=== PATIENT | female | born 2005 | race Caucasian/White ===

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

== ENCOUNTER 2024-08-28 18:22 | Outpatient (REF) | payer MEDICAID, SELFPAY ==
[2024-08-28 17:59] LABS: Source Nasal/Nares
[2024-08-28 18:42] LABS: COVID-19 PCR Negative (Negative)
== END 2024-08-28 18:23 | disposition home or self-care (01) ==
LOC: LBN 18:22
PROVIDERS: Visit Provider Physician Assistant Medical
DX: J06.9 Acute upper respiratory infection, unspecified (principal)
CPT/HCPCS: 87635; 87070

== ENCOUNTER 2024-10-01 22:00 | Outpatient (REF) | payer MEDICAID, SELFPAY | END 2024-10-01 22:01 | disposition home or self-care (01) | LOC: LBN 22:00 | PROVIDERS: Visit Provider Physician Assistant | DX: J02.9 Acute pharyngitis, unspecified (principal) | CPT/HCPCS: 87070 ==

== ENCOUNTER 2024-10-02 14:58 | Outpatient (CLI) | payer MEDICAID, SELFPAY ==
--- NOTE | 2024-10-02 12:30 | DI.US_ITS ---
Exam(s) US ABDOMEN EXAM: US ABDOMEN CLINICAL HISTORY: upper abdominal discomfort, RUQ and LUQ pain, R10.11, R10.12 TECHNIQUE: Ultrasound abdomen performed using standard protocol. COMPARISON: No exams were available for comparison FINDINGS: LIVER: Normal size. Slightly increased liver echogenicity, consistent with mild hepatic steatosis.. No focal liver lesions are seen. GALLBLADDER: No evidence of cholelithiasis. No evidence of wall thickening. No pericholecystic fluid identified. NICOLE'S SIGN: Negative. BILIARY SYSTEM: No intrahepatic or extrahepatic biliary ductal dilation. KIDNEYS: Kidneys are symmetric in size. No evidence of renal calculi. No evidence of hydronephrosis. No renal mass or cyst identified. PANCREAS: Normal where visualized. SPLEEN: Not enlarged. ABDOMINAL AORTA AND IVC: Visualized portions normal caliber. ASCITES: None seen. IMPRESSION: Mild hepatic steatosis. No evidence gallbladder abnormality or biliary dilatation. DATA REPOSITORY:
== END 2024-10-02 15:18 ==
LOC: DI 14:58
PROVIDERS: Visit Provider Physician Assistant
DX: R10.11 Right upper quadrant pain (principal); R10.12 Left upper quadrant pain
CPT/HCPCS: 76700

== ENCOUNTER 2024-10-15 16:09 | Emergency (ER) | payer MEDICAID, SELFPAY ==
[2024-10-15 16:15] VITALS: BP 115/77; PULSE 79; RESP 16; TEMP 36.6; O2SAT 98
--- NOTE | 2024-10-15 16:30 | DI.CT_ITS ---
Exam(s) CT ABDOMEN PELVIS W EXAM: CT ABDOMEN PELVIS W CLINICAL HISTORY: Abd pain, RUQ/RLQ.. TECHNIQUE: Imaging Protocol: Axial computed tomography images with coronal and sagittal reformatted images were created and reviewed CONTRAST MATERIAL: Intravenous: Omnipaque-350 75cc Oral: None COMPARISON: No exams were available for comparison FINDINGS: VISUALIZED LUNG BASES: Visualized lung bases are clear and there are no pleural effusions.. No peric ardial effusion. ABDOMEN: There is no ascites. LIVER: There are no focal hepatic lesions evident. No dilated intrahepatic ducts. GALLBLADDER/BILIARY: Subtle density in the gallbladder neck region may represent sludge or calculus a t this level. The gallbladder is not distended nor edematous and there is no pericholecystic fluid. CBD is not dilated. PANCREAS: No evidence of pancreatic mass nor dilatation of the pancreatic duct. SPLEEN: Spleen is not enlarged. No obvious intrasplenic lesions. Splenic and portal veins are paten t. ADRENALS: There are no significant adrenal masses. KIDNEYS:No cysts evident. No solid renal masses. No calculi nor hydronephrosis.. ABDOMINAL AORTA: Abdominal aorta is not enlarged. LYMPH NODES:There is no retroperitoneal nor paraaortic adenopathy. ABDOMINAL WALL: No evidence of significant anterior abdominal wall nor inguinal hernia. GI: There is no evidence of bowel obstruction, free air, nor abscess. PELVIS: GI: The appendix diameter is slightly prominent measuring 7 mm. There is no obvious periappendiceal streaking. No calcified appendicolith seen.No evidence of sigmoid diverticulitis. LYMPH NODES: There is no intrapelvic nor inguinal adenopathy. REPRODUCTIVE: Uterus size is normal. There is a 2 cm cyst in the left adnexa probably ovarian. No f ree fluid. There is a 1.8 cm follicular cyst seen in the right ovary. No free fluid. URINARY BLADDER: No calculi nor obvious masses evident OSSEOUS: No fractures and no significant osseous lesions. IMPRESSION: 1. The appendix is slightly prominent, exhibiting diameter 7 mm. There does not appear to be periapp endiceal streaking. No evidence of calcified appendicolith. No free air. No fluid collection in th is region. 2. Bilateral small ovarian cysts measuring up to 2 cm. No free fluid in the adnexal regions. 3. Subtle density in the gallbladder neck which may be a subtle gallstone. Recommend follow-up gallb ladder ultrasound. The gallbladder is not distended nor edematous. CBD is not dilated. 4. No evidence of bowel obstruction, free air, nor abscess Findings called by myself to ER physician 10/15/2024 at 6:10 p.m. RADIATION DOSE DELIVERED: 522.68mGy.cm Total DLP DATA REPOSITORY: All CT scans at this facility are submitted to the National Radiology Data Registry (NRDR) Dose Index Registry (DIR) with the [employer] (A[employer]). RADIATION OPTIMIZATION: All CT scans at this facility use at least one of these dose optimization te chniques: automated exposure control; mA and/or kV adjustment per patient size (includes targeted exa ms where dose is matched to clinical indication); or iterative reconstruction.
[2024-10-15 16:37] VITALS: BP 116/78; PULSE 76; RESP 16; TEMP 36.6; O2SAT 100
--- NOTE | 2024-10-15 16:38 | DI.RAD_ITS ---
Exam(s) XR CHEST 2V PA LATERAL EXAM: XR CHEST 2V PA LATERAL CLINICAL HISTORY: R. side pain, eval PNA. TECHNIQUE: 2D digital imaging was performed. COMPARISON: CT CT ABDOMEN PELVIS W from 10/15/2024 FINDINGS: 2 views: Heart size is normal. The mediastinum is not widened. Left lung is clear. There appear to be mildly increased markings in the right lower lobe seen on the frontal view; less evident on the lateral view. There are no pleural effusions. IMPRESSION: Possible right lower lobe infiltrate. No pleural effusions. DATA REPOSITORY: RADIATION DOSE DELIVERED:
--- NOTE | 2024-10-15 16:47 | ED.GENADUL_ITS ---
Discharge Plan Disposition Patient Disposition: Home Condition: Stable Discharge Details Clinical Impression: Right lower lobe pneumonia, Dysmenorrhea, GERD (gastroesophageal reflux disease), Anxiety with depression, Chronic nausea, Abdominal pain, Ovarian cyst Primary Care Provider: Unknown,Unknown ED Provider: Shayy Degroot Home Meds and New Rx's Prescriptions: New amoxicillin 500 mg capsule 1,000 mg PO TID 5 Days Qty: 30 0RF azithromycin 250 mg tablet 250 mg PO DAILY 4 Days Qty: 4 0RF Rx Instructions: start on day 2 of therapy (10/16/2024) dicyclomine 20 mg tablet 20 mg PO TID 7 Days Qty: 21 0RF Discharge Instructions Instructions: Community-Acquired Pneumonia, Adult (DC), Abdominal Pain, Adult ED Additional Instructions: You were seen in the emergency department today for evaluation of abdominal and side pain. You are found to have a small pneumonia in the area of your pain, for which you have been started on 2 antibiotics. You will take these at home, as prescribed, until they are gone, even if you start to feel better. You also had some worsening of your chronic abdominal pain, and had a CT scan and laboratory studies that were reassuring. You did have some mild anemia that is unchanged from your baseline. Unfortunately, we are sometimes unable to determine the exact cause of symptoms in the emergency department, and you should keep your appointment that you have scheduled for tomorrow to discuss this visit and any symptoms that change, worsen, persist. I did prescribe you a medication called Bentyl which can sometimes be helpful in irritable bowel syndrome type pain. Please let your provider know that you are trialing this medication, and thank you for allowing us to be part of your care. Stand Alone Forms: Work Release HPI General Mode of arrival: ambulatory . Date/Time Provider Initiated Documentation: 10/15/24 16:11 . Limitations to Documentation: no limitations . Information obtained by: patient and old records reviewed . HPI Narrative: HPI: This is a 19-year-old female patient with a past medical history significant for abdominal pain, diarrhea, for the last 5 years without diagnostic clarity, presenting for evaluation of a change in her abdominal pain. She reports that she noticed that her usual abdominal pain, which is still present across her bilateral lower abdomen, started to develop into a right upper quadrant and right flank pain. She noticed this private branch exchange repairer a week ago, did have an ultrasound done of her gallbladder which was reported to her as normal. She states that she has had nausea, occasional vomiting, and has had diarrhea. No hematemesis or hematochezia, denies urinary changes such as dysuria or hematuria, has not noted any vaginal discharge or new vaginal bleeding that is of concern to her. She has been using Tylenol as needed for symptoms, last dose yesterday. She reports that she has not been able to identify any specific propagating or palliating factors. Endorses ongoing nausea. No fevers. States that she did have a recent cold 1 or 2 weeks ago, has had a cough. Exam: Gen: Awake and alert, in no apparent distress HEENT: Non-icteric sclera Neck: Supple Lungs: No apparent respiratory distress, normal respiratory effort. Lung sounds clear and equal bilaterally CV: Appears well perfused heart with regular rate and rhythm, strong distal pulses Abdomen: Non-distended, soft, tender to palpation in the right upper quadrant and right lower quadrant without rigidity, rebound, or guarding. MSK: Moves 4 extremities without apparent limitation in ROM Skin: Visualized skin without rashes, cyanosis. Neuro: Normal Gait, no obvious focal deficits or facial asymmetry. Speaks in full, clear sentences. Psych: Appropriate for situation. MDM: This is a 19-year-old female patient presenting for evaluation of abdominal pain and flank pain. My differential includes but is not limited to PUD/gastritis, pancreatitis, cholecystitis, hepatitis, certainly considered pneumonia, which could cause her right flank/side pain. Considered appendicitis, diverticulitis. Gastroenteritis was considered, the patient is without risk factors or physical exam evidence concerning for aortic pathology, SBO, or mesenteric ischemia. She had a negative test making ectopic unlikely, no vaginal symptoms to suggest PID/TOA. No urinary symptoms to suggest nephrolithiasis, UTI/pyelonephritis. Reassuringly, the patient is hemodynamically appropriate and tolerating p.o., and this is an acute on chronic change of symptoms that have been present for quite some time. She has a benign abdominal examination, and after shared decision-making conversation we will proceed with laboratory studies to include CBC, CMP, lipase, urinalysis and U . I will also obtain a CT abdomen pelvis with contrast to better characterize any abnormalities. I will obtain a chest x-ray to evaluate for pneumonia. I will provide her with a dose of Toradol and Zofran for symptomatic management. ED Course: I reviewed the patient's laboratory studies, which show a mild anemia that is unchanged from priors, no leukocytosis or thrombocytopenia. Chemistry panel without significant electrolyte derangements, evidence of kidney or liver dysfunction, and the lipase is low. Urinalysis with squamous contamination, patient states that she is due to start her period. I did review the patient's imaging studies and discussed them with the radiologist. She does have a possible right lower lobe pneumonia, which in the context of her symptoms is a compelling diagnosis. Her CT of her abdomen and pelvis does not show any evidence of appendicitis, bowel obstruction, but does demonstrate bilateral small simple ovarian cysts, with no evidence for free fluid or hemorrhage. These findings were shared with the patient, and I provided her with her first dose of amoxicillin and azithromycin for dual coverage of her community-acquired pneumonia. We had a long discussion regarding the management of her acute on chronic abdominal pain, and she does have follow-up with her outpatient providers tomorrow. I recommended that she continue Tylenol, ibuprofen, and her home omeprazole. I did provide her with a short course of Bentyl to determine how that helps her symptoms. At this time, the patient has had a full medical evaluation and is safe for discharge to home. They are hemodynamically stable, ambulatory, and tolerating PO. They are understanding of the follow-up plan and return precautions. They left our facility without incident. Shayy Degroot MD Related Data Home Medications ?Medication ?Instructions ?Recorded ?Confirmed amoxicillin 500 mg capsule 1,000 mg (2 x 500 mg) PO TID 5 10/15/24 days #30 caps azithromycin 250 mg tablet 250 mg PO DAILY 4 days #4 tabs 10/15/24 dicyclomine 20 mg tablet 20 mg PO TID 1 week #21 tabs 10/15/24 Previous Rx's ?Medication ?Instructions ?Recorded amoxicillin 500 mg capsule 1,000 mg (2 x 500 mg) PO TID 5 10/15/24 days #30 caps azithromycin 250 mg tablet 250 mg PO DAILY 4 days #4 tabs 10/15/24 dicyclomine 20 mg tablet 20 mg PO TID 1 week #21 tabs 10/15/24 Allergies Allergy/AdvReac Type Severity Reaction Status Date / Time povidone-iodine (From Allergy Mild ITCHING Verified 10/15/24 16:14 Betadine) AND INFLAMMATION soap (From Betadine) Allergy Mild ITCHING Verified 10/15/24 16:14 AND INFLAMMATION erythromycin base AdvReac Mild Skin Rash Verified 10/15/24 16:14 General Stated Complaint: Abd Prob SHELDON: 3 Course Vital Signs Vital signs: Vital Signs Temperature 36.6 C 10/15/24 16:15 Pulse 79 10/15/24 16:15 Respiratory Rate 16 10/15/24 16:15 Blood Pressure 115/77 10/15/24 16:15 Pulse Oximetry 98 10/15/24 16:15 Temperature 36.6 C 10/15/24 16:37 Temperature Source Temporal Artery Scan 10/15/24 16:37 Pulse 76 10/15/24 16:37 Respiratory Rate 16 10/15/24 16:37 Blood Pressure 116/78 10/15/24 16:37 Blood Pressure Position Supine 10/15/24 16:37 Pulse Oximetry 100 10/15/24 16:37 Oxygen Delivery Method Room Air 10/15/24 16:37 Oxygen Flow Rate 0 10/15/24 16:15 Pain Level 9 10/15/24 16:37 Lab/Test Results Lab/Test Results: POC- Test(urine) Negative Medical Decision Making Quality:SDOH Health Related Social Needs: No Data to Display PFSH All Active Problems (Updated 10/15/24 @ 18:31 by Shayy Degroot MD) Ovarian cyst (Acute) Abdominal pain (Acute) Right lower lobe pneumonia (Acute) URI (upper respiratory infection) (Acute) Chronic serous otitis media of both ears (Acute) Migraine (Chronic) (Acute) Chronic nausea (Acute) Anxiety with depression (Acute) Has tried sertraline (stopped due to unwanted SE). Lexapro didn't help at all. Improved anxiety with lamotrigine 100mg daily, 25mg QHS Elevated fasting glucose (Acute) GERD (gastroesophageal reflux disease) (Chronic) Dysmenorrhea (Acute) Salter-Ferrell type I physeal fracture of distal end of right fibula with routine healing (Acute 12/30/15) Routine child health exam (Acute 01/28/12) Heart murmur (Acute 01/28/12) nl ECHO Esotropia (Acute 01/28/12) BMI (body mass index), pediatric, 95-99% for age (Acute 01/13/18) Medical History Strabismus Innocent heart murmur nl echo Surgical History H/O eye surgery x2 as a younger child Family History Mother Asthma Father No problems noted. Brother No problems noted. Grandparent Essential hypertension Social History Smoking/Tobacco Use Status: Never Second Hand Exposure: No Smoking risk assessment performed?: Yes Alcohol Intake: current Alcohol Intake frequency: a few times a month Alcohol type: beer Drug use: Never Substance use type: does not use Household members: significant other and family Housing: house Pets and animals: Yes Pets and animals: other Details: lizards Current gender identity: female What type of physical activity do you participate in: regular exercise Seatbelt use: always Helmet use: Yes Drive intox or ride w/intox ross carrier driver: No Do you feel safe at home: Yes Do you feel safe in your relationship?: Yes Female Reproductive History Menstrual Age of Menarche: 12 Duration of menses: 6-7 days History History 1 Para Hx # Term Pregnancies Multiple births Hx # Pregnancies Ectopic pregnancies AB induced 1 Hx Number of Living Children 0 AB spontaneous Past Pregnancies Del. Date GA/Weeks # Preg Succ Route Wgt Sex Labor Lgth Anesth esia Location Prov [facility] 02/07/24 6 Delivery Date: 02/07/24 Last Updated by: Claudia Bledsoe LPN TAB @ [facility]
[2024-10-15] MEDS: Ondansetron 4 MG/2 ML VIAL IVP (16:50)
[2024-10-15] MEDS: Ketorolac 15 MG/ML VIAL IVP (16:50)
[2024-10-15 17:00] LABS: Abs Immature Grans 0.02 10^3/uL (0.0-0.06); Absolute Basophil Count 0.05 10^3/uL (0.0-0.2); Absolute Eosinophil Count 0.11 10^3/uL (0.0-0.7); Absolute Monocyte Count 0.51 10^3/uL (0.1-0.8); Absolute Neutrophil Count 4.35 10^3/uL (1.2-6.7); Basophils % 0.7 %; Eosinophils % 1.5 %; HCT 34.2 % (36.0-46.0); HGB 10.7 g/dL (11.2-15.7); Immature Grans % 0.3 %; Lymphocytes % 30.4 %; MCH 25.5 pg (27.0-33.0); MCHC 31.3 % (32.0-36.0); MCV 82 fL (80-95); MPV 11.2 fL (8.0-11.0); Neutrophils % 60.1 %; Platelet Count 310 10^3/uL (130-400); RBC 4.19 10^6/uL (3.93-5.22); RDW 14.3 % (11.7-14.6); RDW-SD 41.9 fL; WBC 7.24 10^3/uL (4.4-10.8)
[2024-10-15 17:05] LABS: Bilirubin Negative (Negative); Blood Trace-intact (Negative); Clarity Sl Cloudy (Clear); Glucose Negative (Negative); Ketones Negative (Negative); Leukocyte Esterase Negative (Negative); Nitrite Negative (Negative); Urobilinogen 0.2 mg/dL (Up to 0.2)
[2024-10-15] MEDS: Normal Saline - Diluent 50 ML VIAL IJ (17:14)
[2024-10-15] MEDS: Omnipaque 350 MG/ML 100 ML BTL IJ (17:15)
[2024-10-15 17:17] LABS: ALT 20 U/L (14-59); AST 17 U/L (15-37); Albumin 3.9 g/dL (3.4-5.0); Alkaline Phosphatase 75 U/L (46-116); Anion Gap 9.5 mmol/L (3-11); BUN 8 mg/dL (7-18); Bilirubin, Total 0.23 mg/dL (0.2-1.0); CO2 26.5 mmol/L (21.0-32.0); Calcium 9.1 mg/dL (8.5-10.1); Chloride 105 mmol/L (98-107); Estimated GFR 82.71 (mL/min/1.73m2); Glucose 99 mg/dL (74-106); Lipase 18 U/L (<78); Magnesium 1.7 mg/dL (1.8-2.4); Sodium 141 mmol/L (136-145); Total Protein 7.2 g/dL (6.4-8.2)
[2024-10-15 17:17] LABS: Bacteria Few HPF (Negative); C & S Indicated? No/Sq. Contamination; Casts Negative LPF (Negative); Crystals Negative HPF (Negative); Epithelial Cells Many HPF (Negative); Mucus Negative (Negative); Other Cells Negative (Negative)
[2024-10-15] MEDS: Amoxicillin 500 MG CAP 1000 MG PO (18:59)
[2024-10-15] MEDS: Azithromycin 250 MG TAB 500 MG PO (18:59)
[2024-10-15 19:08] VITALS: BP 110/51; PULSE 58; RESP 16; TEMP 36.6; O2SAT 99
== END 2024-10-15 19:10 | disposition home or self-care (01) ==
PROVIDERS: Emergency Provider Emergency Medicine
DX: R10.11 Right upper quadrant pain (principal); R10.31 Right lower quadrant pain; N83.202 Unspecified ovarian cyst, left side; N83.201 Unspecified ovarian cyst, right side; J18.9 Pneumonia, unspecified organism
CPT/HCPCS: 36415; 80053; 81025; 83690; 96374; 96375; 99285; 71046; 74177; 81003; 81015; 83735; 85025; J1885; J2405; J3490

== ENCOUNTER 2024-11-04 16:19 | Outpatient (REF) | payer MEDICAID, SELFPAY ==
[2024-11-04 21:41] LABS: COVID-19 PCR Negative (Negative); Influenza A PCR Negative (Negative); Influenza B PCR Negative (Negative); RSV PCR Negative (Negative)
[2024-11-04 21:49] LABS: Source Nasopharynx
== END 2024-11-04 16:20 | disposition home or self-care (01) ==
LOC: LBN 16:19
PROVIDERS: Visit Provider Nurse Practitioner Family
DX: R68.89 Other general symptoms and signs (principal)
CPT/HCPCS: 87637

== ENCOUNTER 2024-11-04 18:25 | Outpatient (CLI) | payer MEDICAID, SELFPAY ==
--- NOTE | 2024-11-04 16:30 | DI.RAD_ITS ---
Exam(s) XR CHEST 2V PA LATERAL EXAM: XR CHEST 2V PA LATERAL CLINICAL HISTORY: R05.9 Cough, eval pna. TECHNIQUE: 2D digital imaging was performed. COMPARISON: CR XR CHEST 2V PA LATERAL from 10/15/2024 FINDINGS: 2 views: Heart size is normal. The mediastinum is not widened. Both lungs are presently clear. Previously described increased markings in the right lung have resol nela. There are no pleural effusions IMPRESSION: No acute pulmonary findings.Previously described increased markings in the right lower lobe are no lo nger evident. DATA REPOSITORY: RADIATION DOSE DELIVERED:
== END 2024-11-04 18:45 ==
LOC: DI 18:25
PROVIDERS: Visit Provider Nurse Practitioner Family
DX: R05.9 Cough, unspecified (principal)
CPT/HCPCS: 71046

== ENCOUNTER 2025-01-21 21:23 | Outpatient (REF) | payer MEDICAID, SELFPAY ==
[2025-01-21 22:38] LABS: COVID-19 PCR Negative (Negative); Influenza A PCR Negative (Negative); Influenza B PCR Negative (Negative); RSV PCR Negative (Negative)
[2025-01-21 22:39] LABS: Source Nasopharynx
== END 2025-01-21 21:24 | disposition home or self-care (01) ==
LOC: LBN 21:23
PROVIDERS: PCP Nurse Practitioner Family; Visit Provider Physician Assistant Medical
DX: Z20.828 Contact with and (suspected) exposure to other viral communicable diseases (principal)
CPT/HCPCS: 87637

== ENCOUNTER 2025-02-03 13:08 | Outpatient (CLI) | payer MEDICAID, SELFPAY ==
--- NOTE | 2025-02-03 12:54 | DI.RAD_ITS ---
Exam(s) XR CHEST 2V PA LATERAL EXAM: XR CHEST 2V PA LATERAL CLINICAL HISTORY: COUGH, OTHER GENERAL SYMPTOMS AND SIGNS R68.89 TECHNIQUE: 2D digital imaging was performed of the chest. Two images were obtained. PA and lateral views were obtained. COMPARISON: CR XR CHEST 2V PA LATERAL from 11/04/2024 FINDINGS: MEDIASTINUM: Normal. HEART: Normal. PULMONARY VASCULATURE: Normal. LUNGS: Clear. PLEURAL SPACE: No pleural effusion or pneumothorax. BONE:Within normal limits for the patient's age. OTHER FINDINGS:Normal. IMPRESSION: No acute pulmonary findings. DATA REPOSITORY: RADIATION DOSE DELIVERED:
== END 2025-02-03 13:28 ==
LOC: DI 13:09
PROVIDERS: PCP Nurse Practitioner Family; Visit Provider Physician Assistant
DX: R68.89 Other general symptoms and signs (principal)
CPT/HCPCS: 71046

== ENCOUNTER 2025-03-01 15:23 | Emergency (ER) | payer MEDICAID, SELFPAY ==
--- NOTE | 2025-03-01 15:15 | DI.RAD_ITS ---
Exam(s) XR ANKLE LT COMPLETE EXAM: XR ANKLE LT COMPLETE CLINICAL HISTORY: pain s/p injuring while wrestling TECHNIQUE: 2D digital imaging was performed. Three views. COMPARISON: CR,XR XR ANKLE RT COMPLETE from 07/21/2022 FINDINGS: BONES: No acute fracture is present. No bony destructive lesion is seen. JOINTS:The ankle mortise is normally aligned. SOFT TISSUE: Normal. IMPRESSION: Unremarkable radiographs of the left ankle. DATA REPOSITORY: RADIATION DOSE DELIVERED:
[2025-03-01 15:24] VITALS: BP 126/74; PULSE 104; RESP 14; TEMP 36.6; O2SAT 97
--- NOTE | 2025-03-01 19:39 | ED.GENADUL_ITS ---
Discharge Plan Disposition Patient Disposition: Home Condition: Stable Discharge Details Clinical Impression: Left ankle sprain Primary Care Provider: Jade Fairbanks ED Provider: Ambreen Currie Home Meds and New Rx's Prescriptions: New amoxicillin 875 mg tablet 875 mg PO BID Qty: 10 0RF Continued albuterol sulfate 90 mcg/actuation HFA aerosol inhaler 2 puff inhalation Q6H PRN Zyrtec 10 mg capsule 10 mg PO DAILY PRN (Reason: allergy symptoms) Qty: 90 0RF fluticasone propionate [Flonase Allergy Relief] 50 mcg/actuation spray,suspension 1 spray intranasal DAILY Qty: 16 0RF Rx Instructions: administer into each nostril lamotrigine [Lamictal] 100 mg tablet 125 mg PO QAM lamotrigine [Lamictal] 25 mg tablet 50 mg PO QHS Discharge Instructions Instructions: Ankle Sprain ED, Ear Infections in Adults (DC) Additional Instructions: take antibiotics as prescribed you likely sprained your ankle, your xray does not show evidence of a fracture if your symptoms persistent, please have repeat xray in one week motrin, tylenol, rest ice return with new or worsening complaints Stand Alone Forms: Work Release Referrals: Jade Fairbanks [Primary Care Provider] - Discharge Data Discharge Date/Time-TO BE ENTERED AT DEPARTURE: 03/01/25 16:40 HPI General Date/Time Provider Initiated Documentation: 03/01/25 15:27 . HPI Narrative: The patient is a 19-year-old female with left ankle pain and left ear pain. She reports left ankle pain after rolling her ankle while wrestling with her brother at 1800 hours. No associated knee pain or other injuries. She has intermittent left ear pain for the past few months, which worsened after a flight a week ago. The pain has been more pronounced this week. No other complaints. Related Data Home Medications ?Medication ?Instructions ?Recorded ?Confirmed albuterol sulfate 90 mcg/actuation 2 puff inhalation Q6H PRN 11/04/24 03/01/25 aerosol inhaler cetirizine 10 mg capsule (Zyrtec) 10 mg PO DAILY PRN allergy 11/04/24 03/01/25 symptoms #90 caps fluticasone propionate 50 1 spray intranasal DAILY #16 grams 11/04/24 03/01/25 mcg/actuation nasal spray,suspension (Flonase Allergy Relief) amoxicillin 875 mg tablet 875 mg PO BID #10 tabs 03/01/25 lamotrigine 100 mg tablet 125 mg PO QAM 03/01/25 03/01/25 (Lamictal) lamotrigine 25 mg tablet (Lamictal) 50 mg PO QHS 03/01/25 03/01/25 Previous Rx's ?Medication ?Instructions ?Recorded cetirizine 10 mg capsule (Zyrtec) 10 mg PO DAILY PRN allergy 11/04/24 symptoms #90 caps fluticasone propionate 50 1 spray intranasal DAILY #16 grams 11/04/24 mcg/actuation nasal spray,suspension (Flonase Allergy Relief) amoxicillin 875 mg tablet 875 mg PO BID #10 tabs 03/01/25 Allergies Allergy/AdvReac Type Severity Reaction Status Date / Time povidone-iodine (From Allergy Mild ITCHING Verified 03/01/25 15:27 Betadine) AND INFLAMMATION soap (From Betadine) Allergy Mild ITCHING Verified 03/01/25 15:27 AND INFLAMMATION erythromycin base AdvReac Mild Skin Rash Verified 03/01/25 15:27 General Stated Complaint: Orthopedic SHELDON: 4 Exam Narrative Exam Narrative: General Appearance: Alert and oriented, in no acute distress. Vital signs: Within normal limits. HEENT: Left tympanic membrane bulging and red. No mastoid tenderness or drainage. Evidence of external otitis media. Respiratory: Within normal limits. Back, Musculoskeletal: Left knee nontender. Extremities: Left ankle with tenderness and mild swelling, neurovascularly intact. Tenderness over lateral malleolus, no medial malleolus or foot pain. Skin: No rashes or lesions on skin. Neurological: Normal. Course Vital Signs Vital signs: Vital Signs Temperature 36.6 C 03/01/25 15:24 Pulse 104 H 03/01/25 15:24 Respiratory Rate 14 03/01/25 15:24 Blood Pressure 126/74 03/01/25 15:24 Pulse Oximetry 97 03/01/25 15:24 Temperature 36.6 C 03/01/25 15:24 Temperature Source Oral 03/01/25 15:24 Pulse 104 H 03/01/25 15:24 Respiratory Rate 14 03/01/25 15:24 Blood Pressure 126/74 03/01/25 15:24 Blood Pressure Position Sitting 03/01/25 15:24 Pulse Oximetry 97 03/01/25 15:24 Oxygen Delivery Method Room Air 03/01/25 15:24 Oxygen Flow Rate 0 03/01/25 15:24 Pain Level 6 03/01/25 15:24 Medical Decision Making RESULTS: X-ray of left ankle shows no acute abnormality. Initial Assessment: 19-year-old female with left ankle pain after rolling it while wrestling and intermittent left ear pain worsened after a plane trip. ED Course: - Exam: Left TM bulging and red, no mastoid tenderness, no drainage. Evidence of external otitis media. - Exam: Left ankle tenderness and mild swelling, neurovascularly intact, no tenderness over medial malleolus, tenderness over lateral malleolus, no foot pain. - X-ray of left ankle: No acute abnormality (read by me). - Treatment: Amoxicillin 875 mg twice daily for 5 days for suspected left otitis media. - Treatment: Placed in a boot for comfort, weightbearing as tolerated, provided crutches. - Follow-up: Recheck in 1 week with additional imaging as needed. - Return precautions reviewed. Final Assessment: Left otitis media treated with antibiotics and left ankle sprain managed with supportive care and follow-up. Clinical Impression: - Left otitis media - Left ankle sprain Disposition: - Follow-Up: Recheck in 1 week with additional imaging as needed. MDM Components Evaluation: - Number of Differential Diagnoses or Management Options: Left otitis media, left ankle sprain - Amount and Complexity of Data Reviewed: Physical exam findings, X-ray of left ankle - Risk of Complication and Morbidity or Mortality: Low risk given current treatment plan and patient's stable condition. Quality:SDWY Health Related Social Needs: No Data to Display PFSH All Active Problems (Updated 03/01/25 @ 16:19 by CONSTANTINO Braden) Left ankle sprain (Acute) URI (upper respiratory infection) (Acute) Chronic serous otitis media of both ears (Acute) Migraine (Chronic) (Acute) Chronic nausea (Acute) Anxiety with depression (Acute) Has tried sertraline (stopped due to unwanted SE). Lexapro didn't help at all. Improved anxiety with lamotrigine 100mg daily, 25mg QHS Elevated fasting glucose (Acute) GERD (gastroesophageal reflux disease) (Chronic) Dysmenorrhea (Acute) Salter-Ferrell type I physeal fracture of distal end of right fibula with routine healing (Acute 12/30/15) Routine child health exam (Acute 01/28/12) Heart murmur (Acute 01/28/12) nl ECHO Esotropia (Acute 01/28/12) BMI (body mass index), pediatric, 95-99% for age (Acute 01/13/18) Medical History Strabismus Innocent heart murmur nl echo Surgical History H/O eye surgery x2 as a younger child Family History Mother Asthma Father No problems noted. Brother No problems noted. Grandparent Essential hypertension Social History Smoking/Tobacco Use Status: Never Second Hand Exposure: No Smoking risk assessment performed?: Yes Alcohol Intake: current Alcohol Intake frequency: a few times a month Alcohol type: beer Drug use: Never Substance use type: does not use Household members: significant other and family Housing: house Pets and animals: Yes Pets and animals: other Details: lizards Current gender identity: female What type of physical activity do you participate in: regular exercise Seatbelt use: always Helmet use: Yes Drive intox or ride w/intox seasonal driver: No Do you feel safe at home: Yes Do you feel safe in your relationship?: Yes Female Reproductive History Menstrual Age of Menarche: 12 Duration of menses: 6-7 days History History 1 Para Hx # Term Pregnancies Multiple births Hx # Pregnancies Ectopic pregnancies AB induced 1 Hx Number of Living Children 0 AB spontaneous Past Pregnancies Del. Date GA/Weeks # Preg Succ Route Wgt Sex Labor Lgth Anesth esia Location [facility] 02/07/24 6 Delivery Date: 02/07/24 Last Updated by: Claudia Bledsoe LPN TAB @ [facility] Have you Been Recently Intoxicated or Drunk Within the Last 30 days?: No Have you Ever Experienced Previous Episodes of Alcohol Withdrawal?: No Have you ever Experienced Withdrawal Seizures?: No Have you ever Experienced Delirium Tremens(DT)s?: No Have you ever undergone Alcohol Rehabilitation Treatment (i.e, inpt ot outpatient treatment programs)?: No Have you ever Experienced Blackouts?: No Have you ever Combined Alcohol with other Downers within the last 90 days?: No Have you ever Combined Alcohol with any other Substance of Abuse during the last 90 days?: No Positive Blood Alcohol level on Presentation? [PCS.BAL]: No Evidence of Increased Autonomic Activity (i.e. HR>120, tremor, sweating, agitation, nausea)?: No Result: 0
--- NOTE | 2025-03-02 13:09 | NUR.NOTE ---
Nursing Note:Patient had a question about her work note
== END 2025-03-01 16:40 | disposition home or self-care (01) ==
PROVIDERS: Emergency Provider Physician Assistant; PCP Nurse Practitioner Family
DX: S93.402A Sprain of unspecified ligament of left ankle, initial encounter (principal); Y93.72 Activity, wrestling; X50.0XXA Overexertion from strenuous movement or load, initial encounter; H66.92 Otitis media, unspecified, left ear
CPT/HCPCS: 99283 ×2; 29515; 73610

== ENCOUNTER → 2025-09-14 02:03 | Outpatient (CLI) | payer MEDICAID, SELFPAY ==
--- NOTE | 2025-09-14 06:45 | DI.RAD_ITS ---
Exam(s) XR CHEST 2V PA LATERAL EXAM: XR CHEST 2V PA LATERAL CLINICAL HISTORY: cough, ? pneumonia,R05.9 TECHNIQUE: 2D digital imaging was performed. Two views. COMPARISON: CR XR CHEST 2V PA LATERAL from 02/03/2025 FINDINGS: HEART: Normal size. Aorta: Not dilated. PULMONARY VASCULATURE: Normal. MEDIASTINUM: Unremarkable. LUNGS: Clear. PLEURAL SPACE: No pleural effusion or pneumothorax. BONE:Unremarkable for age. SOFT TISSUES: Unremarkable. IMPRESSION: No acute abnormality. DATA REPOSITORY: RADIATION DOSE DELIVERED:
== END ==
LOC: DI 02:03
PROVIDERS: PCP Nurse Practitioner Family; Visit Provider Physician Assistant
DX: R05.9 Cough, unspecified (principal)
CPT/HCPCS: 71046